=== PATIENT | male | born 1965 | race African-American/Black ===

== ENCOUNTER 2022-05-24 12:01 | Inpatient (IN) | payer OTHER ==
[2022-05-24 12:57] VITALS: BMI 36.2
[2022-05-24] MEDS ORDERED: IBUPROFEN 600 MG TABLET (FP) PO PRN (15:08)
[2022-05-24] MEDS ORDERED: DICYCLOMINE HCL 10 MG CAPSULE PO PRN (15:08)
[2022-05-24] MEDS ORDERED: NICOTINE 10 MG CARTRIDGE (INHALER) IH PRN (15:08)
[2022-05-24] MEDS ORDERED: MAG HYDROX/AL HYDROX/SIMETH 30 ML UNIT-DOSE CUP PO PRN (15:08)
[2022-05-24] MEDS ORDERED: IBUPROFEN 400 MG TABLET (FP) PO PRN (15:08)
[2022-05-24] MEDS ORDERED: BISMUTH SUBSALICYLATE 262 MG/15 ML BTL PO PRN (15:08)
[2022-05-24] MEDS ORDERED: LOPERAMIDE HCL 2 MG CAPSULE PO PRN (15:08)
[2022-05-24] MEDS ORDERED: POLYETHYLENE GLYCOL (HEALTHYLAX) 3350 17 GM PACKET PO PRN (15:08)
[2022-05-24] MEDS ORDERED: ACETAMINOPHEN 325 MG TABLET (FP) PO PRN (15:08)
[2022-05-24] MEDS ORDERED: NICOTINE POLACRILEX 4 MG GUM BUC PRN (15:08)
[2022-05-24] MEDS ORDERED: MAGNESIUM HYDROX 2400MG/30ML ORAL SUSPENSION 30 ML CUP PO PRN (15:08)
[2022-05-24] MEDS ORDERED: ONDANSETRON *ODT* 4 MG TABLET SL PRN (15:08)
[2022-05-24] MEDS ORDERED: hydrOXYzine PAMOATE 25 MG CAPSULE (FP) PO PRN (15:08)
[2022-05-24] MEDS ORDERED: BENZOCAINE/MENTHOL (CHLORASEPTIC ) LOZENGE MM PRN (15:08)
[2022-05-24] MEDS ORDERED: LORazepam 1 MG TABLET PO PRN (15:08)
[2022-05-24] MEDS ORDERED: amLODIPine BESYLATE 5 MG TABLET (FP) ONE (16:42)
[2022-05-24] MEDS: amLODIPine BESYLATE 10 MG TABLET (FP) PO SCH (16:44)
[2022-05-24] MEDS: LORazepam 2 MG TABLET PO SCH ×2 (17:22→23:07)
[2022-05-24] MEDS: NICOTINE 21 MG/24 HOURS TOPICAL PATCH TD SCH (17:23)
[2022-05-24] MEDS ORDERED: MELATONIN 5 MG TABLETS PO SCH (22:00)
[2022-05-24] MEDS: THIAMINE HCL 100 MG TABLET (FP) PO SCH (22:47)
[2022-05-25] MEDS: LORazepam 2 MG TABLET PO SCH ×4 (06:00→22:32)
[2022-05-25] MEDS: PRENATAL VITAMINS W/ FOLIC ACID TABLET (FP) PO SCH (10:30)
[2022-05-25] MEDS: METHOCARBAMOL 500 MG TABLET PO PRN (10:31)
[2022-05-25] MEDS: NICOTINE 21 MG/24 HOURS TOPICAL PATCH TD SCH (10:32)
[2022-05-25] MEDS: amLODIPine BESYLATE 10 MG TABLET (FP) PO SCH (10:32)
[2022-05-25 10:55] LABS: HEMATOCRIT 33.3 % (35.4-49); HEMOGLOBIN 11.4 GM/dL (11.7-16.9); MCH 29.4 pg (25.7-33.7); MCHC 34.2 g/dl (32.0-35.9); MEAN PLT VOLUME 9.7 fl (7.5-11.1); PLATELET COUNT 201 10^3/uL (134-434); RBC 3.87 M/mm3 (4.00-5.60); RDW 16.8 % (11.9-15.9); WHITE BLOOD COUNT 8.6 K/mm3 (4.0-10.0)
[2022-05-25 11:20] LABS: ALBUMIN 2.8 g/dl (3.4-5.0); BLOOD UREA NITROGEN 14.3 mg/dL (7-18)
[2022-05-25 11:23] LABS: BILIRUBIN,TOTAL 0.3 mg/dL (0.2-1); CALCIUM 8.7 mg/dL (8.5-10.1); TOT PROT 6.6 g/dl (6.4-8.2)
[2022-05-25] MEDS: ACETAMINOPHEN 325 MG TABLET (FP) PO PRN (18:32)
[2022-05-25] MEDS: THIAMINE HCL 100 MG TABLET (FP) PO SCH (22:32)
[2022-05-25] MEDS: QUEtiapine FUMARATE 100 MG TABLET (FP) PO SCH (22:32)
[2022-05-26] MEDS: LORazepam 1 MG TABLET PO SCH ×4 (06:21→22:43)
[2022-05-26] MEDS: NICOTINE 21 MG/24 HOURS TOPICAL PATCH TD SCH (10:47)
[2022-05-26] MEDS: amLODIPine BESYLATE 10 MG TABLET (FP) PO SCH (10:47)
[2022-05-26] MEDS: PRENATAL VITAMINS W/ FOLIC ACID TABLET (FP) PO SCH (10:47)
[2022-05-26] MEDS: ACETAMINOPHEN 325 MG TABLET (FP) PO PRN (10:49)
[2022-05-26] MEDS: METHOCARBAMOL 500 MG TABLET PO PRN (10:49)
[2022-05-26] MEDS: THIAMINE HCL 100 MG TABLET (FP) PO SCH (22:43)
[2022-05-26] MEDS: QUEtiapine FUMARATE 100 MG TABLET (FP) PO SCH (22:43)
[2022-05-27] MEDS ORDERED: LORazepam 0.5 MG TABLET PO PRN
[2022-05-27] MEDS: LORazepam 0.5 MG TABLET PO SCH ×2 (06:14→10:40)
[2022-05-27 09:21] VITALS: RESP 18
[2022-05-27] MEDS: PRENATAL VITAMINS W/ FOLIC ACID TABLET (FP) PO SCH (10:39)
[2022-05-27] MEDS: NICOTINE 21 MG/24 HOURS TOPICAL PATCH TD SCH (10:40)
[2022-05-27] MEDS: amLODIPine BESYLATE 10 MG TABLET (FP) PO SCH (10:40)
[2022-05-27] MEDS: METHOCARBAMOL 500 MG TABLET PO PRN (10:40)
[2022-05-27 13:08] VITALS: BP 132/70; PULSE 91; TEMP 98.6
[2022-05-28] MEDS ORDERED: LORazepam 0.5 MG TABLET PO ONE (05:00)
== END 2022-05-27 15:16 | disposition home or self-care (01) | DRG 897 ==
LOC: YASAS 12:01 → Y6N 15:58
PROVIDERS: ADMIT Allergy & Immunology; ATTEND Surgery
PROC: HZ2ZZZZ Detoxification Services for Substance Abuse Treatment (ICD-10-PCS; principal; 2022-05-24)
DX: F10.230 Alcohol dependence with withdrawal, uncomplicated (principal); F14.20 Cocaine dependence, uncomplicated; F19.282 Other psychoactive substance dependence with psychoactive substance-induced sleep disorder; F12.20 Cannabis dependence, uncomplicated; F17.210 Nicotine dependence, cigarettes, uncomplicated; F25.9 Schizoaffective disorder, unspecified; I10 Essential (primary) hypertension; E66.9 Obesity, unspecified; Z68.36 Body mass index [BMI] 36.0-36.9, adult; Z86.73 Personal history of transient ischemic attack (TIA), and cerebral infarction without residual deficits; Z99.89 Dependence on other enabling machines and devices
CPT/HCPCS: 36415; 80053; 85027; 86593; 86780; 93005; 93010; C9803-CS; U0003; U0005

== ENCOUNTER 2022-06-26 09:41 | Inpatient (IN) | payer OTHER ==
[2022-06-26 10:13] VITALS: BMI 31.6
[2022-06-26] MEDS ORDERED: BENZOCAINE/MENTHOL (CHLORASEPTIC ) LOZENGE MM PRN (11:48)
[2022-06-26] MEDS ORDERED: chlordiazePOXIDE HCL 25 MG CAPSULE PO PRN (11:48)
[2022-06-26] MEDS ORDERED: IBUPROFEN 600 MG TABLET (FP) PO PRN (11:48)
[2022-06-26] MEDS ORDERED: LOPERAMIDE HCL 2 MG CAPSULE PO PRN (11:48)
[2022-06-26] MEDS ORDERED: NALOXONE HCL 0.4 MG/ML VIAL IM PRN (11:48)
[2022-06-26] MEDS ORDERED: NALOXONE HCL (KLOXXADO) 8 MG SPRAY NS PRN (11:48)
[2022-06-26] MEDS ORDERED: BISMUTH SUBSALICYLATE 524 MG/30 ML PO PRN (11:48)
[2022-06-26] MEDS ORDERED: IBUPROFEN 400 MG TABLET (FP) PO PRN (11:48)
[2022-06-26] MEDS ORDERED: MAG HYDROX/AL HYDROX/SIMETH 30 ML UNIT-DOSE CUP PO PRN (11:48)
[2022-06-26] MEDS ORDERED: BENZONATATE 200 MG CAPSULE PO PRN (11:48)
[2022-06-26] MEDS ORDERED: DICYCLOMINE HCL 10 MG CAPSULE PO PRN (11:48)
[2022-06-26] MEDS ORDERED: MAGNESIUM HYDROX 2400MG/30ML ORAL SUSPENSION 30 ML CUP PO PRN (11:48)
[2022-06-26] MEDS ORDERED: ONDANSETRON *ODT* 4 MG TABLET SL PRN (11:48)
[2022-06-26] MEDS ORDERED: guaiFENesin 600 MG TABLET.ER (FP) PO PRN (11:48)
[2022-06-26] MEDS ORDERED: POLYETHYLENE GLYCOL (HEALTHYLAX) 3350 17 GM PACKET PO PRN (11:48)
[2022-06-26] MEDS ORDERED: ACETAMINOPHEN 325 MG TABLET (FP) PO PRN (11:48)
[2022-06-26] MEDS: chlordiazePOXIDE HCL 25 MG CAPSULE PO SCH ×2 (17:47→22:23)
[2022-06-26] MEDS: MELATONIN 5 MG TABLETS PO SCH (22:20)
[2022-06-26] MEDS: THIAMINE HCL 100 MG TABLET (FP) PO SCH (22:21)
[2022-06-26] MEDS ORDERED: cloNIDine HCL 0.1 MG TABLET PO ONE (22:30)
[2022-06-27] MEDS: chlordiazePOXIDE HCL 25 MG CAPSULE PO SCH ×4 (05:41→22:11)
[2022-06-27] MEDS: amLODIPine BESYLATE 10 MG TABLET (FP) PO SCH (10:20)
[2022-06-27] MEDS: PRENATAL VITAMINS W/ FOLIC ACID TABLET (FP) PO SCH (10:22)
[2022-06-27 11:42] LABS: HEMATOCRIT 34.1 % (35.4-49); HEMOGLOBIN 11.4 GM/dL (11.7-16.9); MCH 27.9 pg (25.7-33.7); MCHC 33.4 g/dl (32.0-35.9); MEAN CELL VOLUME 83.7 fl (80-96); MEAN PLT VOLUME 9.4 fl (7.5-11.1); PLATELET COUNT 195 10^3/uL (134-434); RBC 4.08 M/mm3 (4.00-5.60); RDW 17.5 % (11.9-15.9); WHITE BLOOD COUNT 7.3 K/mm3 (4.0-10.0)
[2022-06-27 12:00] LABS: CALCIUM 8.5 mg/dL (8.5-10.1)
[2022-06-27 12:01] LABS: ALBUMIN 2.9 g/dl (3.4-5.0); BLOOD UREA NITROGEN 16.8 mg/dL (7-18)
[2022-06-27 12:04] LABS: CREATININE 1.1 mg/dL (0.55-1.3)
[2022-06-27 12:05] LABS: BILIRUBIN,TOTAL 0.6 mg/dL (0.2-1); TOT PROT 6.8 g/dl (6.4-8.2)
[2022-06-27] MEDS: hydrOXYzine PAMOATE 25 MG CAPSULE (FP) PO PRN (21:45)
[2022-06-27] MEDS: MELATONIN 5 MG TABLETS PO SCH (22:08)
[2022-06-27] MEDS: THIAMINE HCL 100 MG TABLET (FP) PO SCH (22:09)
[2022-06-27] MEDS: METHOCARBAMOL 500 MG TABLET PO PRN (22:09)
[2022-06-27] MEDS ORDERED: cloNIDine HCL 0.1 MG TABLET PO ONE (22:22)
[2022-06-28] MEDS: chlordiazePOXIDE HCL 25 MG CAPSULE PO SCH ×4 (05:52→22:36)
[2022-06-28] MEDS: PRENATAL VITAMINS W/ FOLIC ACID TABLET (FP) PO SCH (10:37)
[2022-06-28] MEDS: amLODIPine BESYLATE 10 MG TABLET (FP) PO SCH (10:37)
[2022-06-28] MEDS: MELATONIN 5 MG TABLETS PO SCH (22:36)
[2022-06-28] MEDS: THIAMINE HCL 100 MG TABLET (FP) PO SCH (22:36)
[2022-06-28] MEDS: METHOCARBAMOL 500 MG TABLET PO PRN (22:38)
[2022-06-28] MEDS: hydrOXYzine PAMOATE 25 MG CAPSULE (FP) PO PRN (22:38)
[2022-06-29] MEDS ORDERED: chlordiazePOXIDE HCL 10 MG CAPSULE PO PRN
[2022-06-29] MEDS: chlordiazePOXIDE HCL 10 MG CAPSULE PO SCH ×4 (05:58→22:35)
[2022-06-29] MEDS: amLODIPine BESYLATE 10 MG TABLET (FP) PO SCH (10:50)
[2022-06-29] MEDS: PRENATAL VITAMINS W/ FOLIC ACID TABLET (FP) PO SCH (10:53)
[2022-06-29] MEDS: THIAMINE HCL 100 MG TABLET (FP) PO SCH (22:35)
[2022-06-29] MEDS: MELATONIN 5 MG TABLETS PO SCH (22:35)
[2022-06-29] MEDS: QUEtiapine FUMARATE 100 MG TABLET (FP) PO SCH (22:35)
[2022-06-30] MEDS: chlordiazePOXIDE HCL 10 MG CAPSULE PO SCH ×2 (06:09→17:30)
[2022-06-30] MEDS: amLODIPine BESYLATE 10 MG TABLET (FP) PO SCH (10:42)
[2022-06-30] MEDS: PRENATAL VITAMINS W/ FOLIC ACID TABLET (FP) PO SCH (10:42)
[2022-06-30] MEDS: METHOCARBAMOL 500 MG TABLET PO PRN (22:06)
[2022-06-30] MEDS: hydrOXYzine PAMOATE 25 MG CAPSULE (FP) PO PRN (22:06)
[2022-06-30] MEDS: THIAMINE HCL 100 MG TABLET (FP) PO SCH (22:06)
[2022-06-30] MEDS: MELATONIN 5 MG TABLETS PO SCH (22:06)
[2022-06-30] MEDS: QUEtiapine FUMARATE 100 MG TABLET (FP) PO SCH (22:07)
[2022-07-01] MEDS ORDERED: chlordiazePOXIDE HCL 10 MG CAPSULE PO ONE (05:00)
[2022-07-01] MEDS: amLODIPine BESYLATE 10 MG TABLET (FP) PO SCH (10:46)
[2022-07-01] MEDS: PRENATAL VITAMINS W/ FOLIC ACID TABLET (FP) PO SCH (10:46)
[2022-07-01 13:14] VITALS: BP 140/95; PULSE 101; RESP 19; TEMP 97.7
== END 2022-07-01 14:15 | disposition home or self-care (01) | DRG 897 ==
LOC: YASAS 09:41 → Y3N 11:23
PROVIDERS: ADMIT Allergy & Immunology; ATTEND Surgery
PROC: HZ2ZZZZ Detoxification Services for Substance Abuse Treatment (ICD-10-PCS; principal; 2022-06-26)
DX: F10.230 Alcohol dependence with withdrawal, uncomplicated (principal); F14.20 Cocaine dependence, uncomplicated; F19.282 Other psychoactive substance dependence with psychoactive substance-induced sleep disorder; F12.20 Cannabis dependence, uncomplicated; F25.9 Schizoaffective disorder, unspecified; I10 Essential (primary) hypertension; Z86.73 Personal history of transient ischemic attack (TIA), and cerebral infarction without residual deficits
CPT/HCPCS: 36415; 80053; 82962; 85027; 86593; 86780; 87811; C9803-CS; Q0162; U0003; U0005

== ENCOUNTER 2022-12-03 18:16 | Inpatient (IN) | payer OTHER ==
[2022-12-03 19:49] VITALS: BMI 36.6
[2022-12-03] MEDS ORDERED: ACETAMINOPHEN 325 MG TABLET (FP) PO PRN (20:18)
[2022-12-03] MEDS ORDERED: MAGNESIUM HYDROX 2400MG/30ML ORAL SUSPENSION 30 ML CUP PO PRN (20:18)
[2022-12-03] MEDS ORDERED: BENZOCAINE/MENTHOL (CHLORASEPTIC ) LOZENGE MM PRN (20:18)
[2022-12-03] MEDS ORDERED: IBUPROFEN 400 MG TABLET (FP) PO PRN (20:18)
[2022-12-03] MEDS ORDERED: NALOXONE HCL (KLOXXADO) 8 MG SPRAY NS PRN (20:18)
[2022-12-03] MEDS ORDERED: MAG HYDROX/AL HYDROX/SIMETH 30 ML UNIT-DOSE CUP PO PRN (20:18)
[2022-12-03] MEDS ORDERED: BISMUTH SUBSALICYLATE 524 MG/30 ML PO PRN (20:18)
[2022-12-03] MEDS ORDERED: ONDANSETRON *ODT* 4 MG TABLET SL PRN (20:18)
[2022-12-03] MEDS ORDERED: hydrOXYzine PAMOATE 25 MG CAPSULE (FP) PO PRN (20:18)
[2022-12-03] MEDS ORDERED: IBUPROFEN 600 MG TABLET (FP) PO PRN (20:18)
[2022-12-03] MEDS ORDERED: LOPERAMIDE HCL 2 MG CAPSULE PO PRN (20:18)
[2022-12-03] MEDS ORDERED: NALOXONE HCL 0.4 MG/ML VIAL IM PRN (20:18)
[2022-12-03] MEDS ORDERED: METHOCARBAMOL 500 MG TABLET PO PRN (20:18)
[2022-12-03] MEDS ORDERED: guaiFENesin 600 MG TABLET.ER (FP) PO PRN (20:18)
[2022-12-03] MEDS ORDERED: DICYCLOMINE HCL 10 MG CAPSULE PO PRN (20:18)
[2022-12-03] MEDS ORDERED: POLYETHYLENE GLYCOL (HEALTHYLAX) 3350 17 GM PACKET PO PRN (20:18)
[2022-12-03] MEDS ORDERED: BENZONATATE 200 MG CAPSULE PO PRN (20:18)
[2022-12-03] MEDS ORDERED: cloNIDine HCL 0.1 MG TABLET PO ONE (20:24)
[2022-12-03] MEDS ORDERED: cloNIDine HCL 0.1 MG TABLET ONE (20:28)
[2022-12-03] MEDS: MELATONIN 5 MG TABLETS PO SCH (22:27)
[2022-12-03] MEDS: THIAMINE HCL 100 MG TABLET (FP) PO SCH (22:27)
[2022-12-04] MEDS: amLODIPine BESYLATE 10 MG TABLET (FP) PO SCH (10:37)
[2022-12-04] MEDS: PRENATAL VITAMINS W/ FOLIC ACID TABLET (FP) PO SCH (10:37)
[2022-12-04] MEDS ORDERED: LORazepam 1 MG TABLET PO PRN (11:15)
[2022-12-04 11:20] LABS: HEMATOCRIT 35.4 % (35.4-49); HEMOGLOBIN 11.6 GM/dL (11.7-16.9); MCH 27.2 pg (25.7-33.7); MCHC 32.8 g/dl (32.0-35.9); MEAN CELL VOLUME 82.9 fl (80-96); MEAN PLT VOLUME 9.7 fl (7.5-11.1); PLATELET COUNT 196 10^3/uL (134-434); RBC 4.27 M/mm3 (4.00-5.60); RDW 17.9 % (11.9-15.9); WHITE BLOOD COUNT 8.1 K/mm3 (4.0-10.0)
[2022-12-04 11:21] LABS: POTASSIUM 4.1 mmol/L (3.5-5.1)
[2022-12-04 11:24] LABS: CALCIUM 8.1 mg/dL (8.5-10.1)
[2022-12-04 11:25] LABS: ALBUMIN 2.8 g/dl (3.4-5.0); BLOOD UREA NITROGEN 12.5 mg/dL (7-18)
[2022-12-04 11:28] LABS: CREATININE 1.1 mg/dL (0.55-1.3)
[2022-12-04 11:30] LABS: BILIRUBIN,TOTAL 0.3 mg/dL (0.2-1); TOT PROT 6.5 g/dl (6.4-8.2)
[2022-12-04] MEDS: LORazepam 2 MG TABLET PO SCH ×2 (17:09→22:15)
[2022-12-04] MEDS: MELATONIN 5 MG TABLETS PO SCH (22:15)
[2022-12-04] MEDS: THIAMINE HCL 100 MG TABLET (FP) PO SCH (22:15)
[2022-12-05] MEDS: LORazepam 1 MG TABLET PO SCH ×4 (06:01→22:31)
[2022-12-05] MEDS: amLODIPine BESYLATE 10 MG TABLET (FP) PO SCH (10:36)
[2022-12-05] MEDS: PRENATAL VITAMINS W/ FOLIC ACID TABLET (FP) PO SCH (10:40)
[2022-12-05 17:07] VITALS: RESP 18
[2022-12-05] MEDS: MELATONIN 5 MG TABLETS PO SCH (22:31)
[2022-12-05] MEDS: THIAMINE HCL 100 MG TABLET (FP) PO SCH (22:31)
[2022-12-06] MEDS: LORazepam 0.5 MG TABLET PO SCH ×2 (05:54→10:34)
[2022-12-06] MEDS ORDERED: LISINOPRIL 20 MG TABLET PO ONE (10:00)
[2022-12-06] MEDS: amLODIPine BESYLATE 10 MG TABLET (FP) PO SCH (10:33)
[2022-12-06] MEDS: PRENATAL VITAMINS W/ FOLIC ACID TABLET (FP) PO SCH (10:35)
[2022-12-06 12:38] VITALS: BP 130/69; PULSE 82; TEMP 98.7
[2022-12-07] MEDS ORDERED: LORazepam 0.5 MG TABLET PO ONE (05:00)
== END 2022-12-06 14:50 | disposition home or self-care (01) | DRG 897 ==
LOC: YASAS 18:16 → Y6N 20:43
PROVIDERS: ADMIT Allergy & Immunology; ATTEND Surgery
PROC: HZ2ZZZZ Detoxification Services for Substance Abuse Treatment (ICD-10-PCS; principal; 2022-12-03)
DX: F10.230 Alcohol dependence with withdrawal, uncomplicated (principal); F14.20 Cocaine dependence, uncomplicated; I69.854 Hemiplegia and hemiparesis following other cerebrovascular disease affecting left non-dominant side; F12.20 Cannabis dependence, uncomplicated; F25.9 Schizoaffective disorder, unspecified; I10 Essential (primary) hypertension; E66.9 Obesity, unspecified; Z68.36 Body mass index [BMI] 36.0-36.9, adult; Z86.19 Personal history of other infectious and parasitic diseases; Z99.89 Dependence on other enabling machines and devices
CPT/HCPCS: 36415; 80053; 85027; 86593; 86780; 87635; 87811

== ENCOUNTER 2023-03-20 13:02 | Inpatient (IN) | payer OTHER ==
[2023-03-20 13:51] VITALS: BMI 36.6
[2023-03-20] MEDS ORDERED: hydrOXYzine PAMOATE 25 MG CAPSULE (FP) PO PRN (17:05)
[2023-03-20] MEDS ORDERED: IBUPROFEN 400 MG TABLET (FP) PO PRN (17:05)
[2023-03-20] MEDS ORDERED: POLYETHYLENE GLYCOL (HEALTHYLAX) 3350 17 GM PACKET PO PRN (17:05)
[2023-03-20] MEDS ORDERED: BENZONATATE 200 MG CAPSULE PO PRN (17:05)
[2023-03-20] MEDS ORDERED: LOPERAMIDE HCL 2 MG CAPSULE PO PRN (17:05)
[2023-03-20] MEDS ORDERED: guaiFENesin 600 MG TABLET.ER (FP) PO PRN (17:05)
[2023-03-20] MEDS ORDERED: ONDANSETRON *ODT* 4 MG TABLET SL PRN (17:05)
[2023-03-20] MEDS ORDERED: IBUPROFEN 600 MG TABLET (FP) PO PRN (17:05)
[2023-03-20] MEDS ORDERED: METHOCARBAMOL 500 MG TABLET PO PRN (17:05)
[2023-03-20] MEDS ORDERED: ACETAMINOPHEN 325 MG TABLET (FP) PO PRN (17:05)
[2023-03-20] MEDS ORDERED: DICYCLOMINE HCL 10 MG CAPSULE PO PRN (17:05)
[2023-03-20] MEDS ORDERED: BENZOCAINE/MENTHOL (CHLORASEPTIC ) LOZENGE MM PRN (17:05)
[2023-03-20] MEDS ORDERED: MAG HYDROX/AL HYDROX/SIMETH 30 ML UNIT-DOSE CUP PO PRN (17:05)
[2023-03-20] MEDS ORDERED: BISMUTH SUBSALICYLATE 524 MG/30 ML PO PRN (17:05)
[2023-03-20] MEDS ORDERED: MAGNESIUM HYDROX 2400MG/30ML ORAL SUSPENSION 30 ML CUP PO PRN (17:05)
[2023-03-20] MEDS: THIAMINE HCL 100 MG TABLET (FP) PO SCH (21:38)
[2023-03-20] MEDS: MELATONIN 5 MG TABLETS PO SCH (21:38)
[2023-03-21] MEDS: P-EPHED 60MG/TRIPROLIDI 2.5MG TABLET PO PRN ×3 (00:13→22:37)
[2023-03-21] MEDS: PRENATAL VITAMINS W/ FOLIC ACID TABLET (FP) PO SCH (10:20)
[2023-03-21] MEDS: amLODIPine BESYLATE 10 MG TABLET (FP) PO SCH (11:12)
[2023-03-21 13:07] LABS: HEMATOCRIT 34.4 % (35.4-49); HEMOGLOBIN 11.1 GM/dL (11.7-16.9); MCH 26.7 pg (25.7-33.7); MCHC 32.2 g/dl (32.0-35.9); MEAN CELL VOLUME 83.1 fl (80-96); MEAN PLT VOLUME 9.8 fl (7.5-11.1); PLATELET COUNT 223 10^3/uL (134-434); RBC 4.14 M/mm3 (4.00-5.60); RDW 19.1 % (11.9-15.9); WHITE BLOOD COUNT 11.9 K/mm3 (4.0-10.0)
[2023-03-21 13:17] LABS: CHLORIDE 105 mmol/L (98-107); POTASSIUM 3.7 mmol/L (3.5-5.1); SODIUM 138 mmol/L (136-145)
[2023-03-21 13:27] LABS: ANION GAP 6 mmol/L (4-13); BLOOD UREA NITROGEN 12.4 mg/dL (7-18); CALCIUM 8.5 mg/dL (8.5-10.1); CO2 28 mmol/L (21-32); GLUCOSE,RANDOM 222 mg/dL (74-106)
[2023-03-21 13:28] LABS: ALBUMIN 2.7 g/dl (3.4-5.0)
[2023-03-21 13:30] LABS: SGPT/ALT 23 U/L (13-61)
[2023-03-21 13:31] LABS: SGOT/AST 11 U/L (15-37)
[2023-03-21 13:32] LABS: BILIRUBIN,TOTAL 0.4 mg/dL (0.2-1); TOT PROT 6.6 g/dl (6.4-8.2)
[2023-03-21 13:33] LABS: ALK PHOS 93 U/L (45-117)
[2023-03-21 13:36] LABS: CREATININE 1.1 mg/dL (0.55-1.3)
[2023-03-21] MEDS: LISINOPRIL 20 MG TABLET PO SCH (20:30)
[2023-03-21 22:03] LABS: HIV INTERPRETATION NEGATIVE (NEGATIVE)
[2023-03-21] MEDS: THIAMINE HCL 100 MG TABLET (FP) PO SCH (22:37)
[2023-03-21] MEDS: MELATONIN 5 MG TABLETS PO SCH (22:37)
[2023-03-22] MEDS: PRENATAL VITAMINS W/ FOLIC ACID TABLET (FP) PO SCH (10:25)
[2023-03-22] MEDS: amLODIPine BESYLATE 10 MG TABLET (FP) PO SCH (10:25)
[2023-03-22] MEDS: LISINOPRIL 20 MG TABLET PO SCH (10:25)
[2023-03-22] MEDS: P-EPHED 60MG/TRIPROLIDI 2.5MG TABLET PO PRN (10:27)
[2023-03-22] MEDS: THIAMINE HCL 100 MG TABLET (FP) PO SCH (22:49)
[2023-03-22] MEDS: MELATONIN 5 MG TABLETS PO SCH (22:49)
[2023-03-23] MEDS ORDERED: ALBUTEROL SO4 HFA INHALER IH ONE (09:14)
[2023-03-23] MEDS ORDERED: ALBUTEROL SO4 2.5/IPRATROPIUM 0.5 INH SOL 3 ML VIAL.NEB. NEB ONE (09:23)
[2023-03-23] MEDS ORDERED: ALBUTEROL SO4 0.083% IH SOL 2.5 MG/3 ML VIAL.NEB. NEB ONE ×2 (09:26→15:04)
[2023-03-23] MEDS: PRENATAL VITAMINS W/ FOLIC ACID TABLET (FP) PO SCH (09:35)
[2023-03-23] MEDS: amLODIPine BESYLATE 10 MG TABLET (FP) PO SCH (09:35)
[2023-03-23] MEDS: P-EPHED 60MG/TRIPROLIDI 2.5MG TABLET PO PRN ×2 (09:35→22:01)
[2023-03-23] MEDS: LISINOPRIL 20 MG TABLET PO SCH (09:35)
[2023-03-23] MEDS: ALBUTEROL SO4 HFA INHALER IH PRN ×2 (09:40→15:00)
[2023-03-23] MEDS: predniSONE 20 MG TABLET (UD) PO SCH (10:52)
[2023-03-23] MEDS ORDERED: ALBUTEROL SO4 2.5/IPRATROPIUM 0.5 INH SOL 3 ML VIAL.NEB. NEB PRN (15:17)
[2023-03-23] MEDS ORDERED: diazePAM 5 MG TABLET PO ONE (15:18)
[2023-03-23] MEDS ORDERED: QUEtiapine FUMARATE 100 MG TABLET (FP) PO SCH (22:00)
[2023-03-23] MEDS: MELATONIN 5 MG TABLETS PO SCH (22:02)
[2023-03-23] MEDS: THIAMINE HCL 100 MG TABLET (FP) PO SCH (22:02)
[2023-03-24 08:53] VITALS: BP 131/74; PULSE 93; RESP 16; TEMP 96.9
[2023-03-24] MEDS: predniSONE 20 MG TABLET (UD) PO SCH (09:46)
[2023-03-24] MEDS: amLODIPine BESYLATE 10 MG TABLET (FP) PO SCH (09:47)
[2023-03-24] MEDS: LISINOPRIL 20 MG TABLET PO SCH (09:47)
[2023-03-24] MEDS: PRENATAL VITAMINS W/ FOLIC ACID TABLET (FP) PO SCH (09:47)
== END 2023-03-24 10:56 | disposition home or self-care (01) | DRG 897 ==
LOC: YASAS 13:02 → Y3N 17:22
PROVIDERS: ADMIT Allergy & Immunology; ATTEND Surgery
PROC: HZ2ZZZZ Detoxification Services for Substance Abuse Treatment (ICD-10-PCS; principal; 2023-03-20)
DX: F10.230 Alcohol dependence with withdrawal, uncomplicated (principal); I69.854 Hemiplegia and hemiparesis following other cerebrovascular disease affecting left non-dominant side; F14.10 Cocaine abuse, uncomplicated; F12.20 Cannabis dependence, uncomplicated; F17.210 Nicotine dependence, cigarettes, uncomplicated; F25.9 Schizoaffective disorder, unspecified; I10 Essential (primary) hypertension; J06.9 Acute upper respiratory infection, unspecified; J45.909 Unspecified asthma, uncomplicated; R73.9 Hyperglycemia, unspecified; Z20.828 Contact with and (suspected) exposure to other viral communicable diseases; Z99.89 Dependence on other enabling machines and devices
CPT/HCPCS: 0241U-QW; 36415; 80053; 80307; 85027; 86593; 86780; 87389; 87635; 87811; 94640

== ENCOUNTER 2023-06-24 10:15 | Inpatient (IN) | payer OTHER ==
[2023-06-24 10:39] VITALS: BMI 34.9
[2023-06-24] MEDS ORDERED: NALOXONE HCL 0.4 MG/ML VIAL IM PRN (12:54)
[2023-06-24] MEDS ORDERED: ONDANSETRON *ODT* 4 MG TABLET SL PRN (12:54)
[2023-06-24] MEDS ORDERED: guaiFENesin 600 MG TABLET.ER (FP) PO PRN (12:54)
[2023-06-24] MEDS ORDERED: POLYETHYLENE GLYCOL (HEALTHYLAX) 3350 17 GM PACKET PO PRN (12:54)
[2023-06-24] MEDS ORDERED: LORazepam 1 MG TABLET PO PRN (12:54)
[2023-06-24] MEDS ORDERED: ACETAMINOPHEN 325 MG TABLET (FP) PO PRN (12:54)
[2023-06-24] MEDS ORDERED: BISMUTH SUBSALICYLATE 524 MG/30 ML PO PRN (12:54)
[2023-06-24] MEDS ORDERED: LOPERAMIDE HCL 2 MG CAPSULE PO PRN (12:54)
[2023-06-24] MEDS ORDERED: MAGNESIUM HYDROX 2400MG/30ML ORAL SUSPENSION 30 ML CUP PO PRN (12:54)
[2023-06-24] MEDS ORDERED: BENZONATATE 200 MG CAPSULE PO PRN (12:54)
[2023-06-24] MEDS ORDERED: DICYCLOMINE HCL 10 MG CAPSULE PO PRN (12:54)
[2023-06-24] MEDS ORDERED: BENZOCAINE/MENTHOL (CHLORASEPTIC ) LOZENGE MM PRN (12:54)
[2023-06-24] MEDS ORDERED: NALOXONE HCL (KLOXXADO) 8 MG SPRAY NS PRN (12:54)
[2023-06-24] MEDS: ASPIRIN 81 MG CHEWABLE TABLETS PO SCH (15:23)
[2023-06-24] MEDS: ISOSORBIDE MONONITRATE 30 MG TAB.SR.24H (FP) PO SCH (15:24)
[2023-06-24] MEDS: NIFEdipine E.R. 30 MG TABLET PO SCH (15:25)
[2023-06-24] MEDS: LORazepam 2 MG TABLET PO SCH (17:50)
[2023-06-24] MEDS: METHOCARBAMOL 500 MG TABLET PO PRN (18:50)
[2023-06-24] MEDS: ROSUVASTATIN CA 20 MG TABLET PO SCH (22:24)
[2023-06-24] MEDS: MELATONIN 5 MG TABLETS PO SCH (22:24)
[2023-06-24] MEDS: THIAMINE HCL 100 MG TABLET (FP) PO SCH (22:24)
[2023-06-25] MEDS ORDERED: NIFEdipine E.R. 30 MG TABLET PO SCH (10:00)
[2023-06-25] MEDS: PRENATAL VITAMINS W/ FOLIC ACID TABLET (FP) PO SCH (10:48)
[2023-06-25 10:54] LABS: HEMATOCRIT 33.3 % (35.4-49); HEMOGLOBIN 11.1 GM/dL (11.7-16.9); MCH 28.3 pg (25.7-33.7); MCHC 33.4 g/dl (32.0-35.9); MEAN CELL VOLUME 84.6 fl (80-96); PLATELET COUNT 191 10^3/uL (134-434); RBC 3.94 M/mm3 (4.00-5.60); RDW 18.6 % (11.9-15.9); WHITE BLOOD COUNT 7.4 K/mm3 (4.0-10.0)
[2023-06-25 11:00] LABS: POTASSIUM 3.6 mmol/L (3.5-5.1)
[2023-06-25 11:05] LABS: BLOOD UREA NITROGEN 15.1 mg/dL (7-18)
[2023-06-25 11:06] LABS: CALCIUM 8.5 mg/dL (8.5-10.1)
[2023-06-25 11:07] LABS: ALBUMIN 2.7 g/dl (3.4-5.0)
[2023-06-25 11:08] LABS: CREATININE 1.1 mg/dL (0.55-1.3)
[2023-06-25 11:10] LABS: BILIRUBIN,TOTAL 0.3 mg/dL (0.2-1); TOT PROT 6.4 g/dl (6.4-8.2)
[2023-06-25] MEDS: LACTULOSE 20 GM/30 ML UDC (FOR ORAL USE ONLY) PO SCH (13:56)
[2023-06-25] MEDS: MAG HYDROX/AL HYDROX/SIMETH 30 ML UNIT-DOSE CUP PO PRN (21:45)
[2023-06-25] MEDS: QUEtiapine FUMARATE 50 MG TABLET PO SCH (22:23)
[2023-06-26] MEDS: LORazepam 1 MG TABLET PO SCH (05:36)
[2023-06-27] MEDS ORDERED: LORazepam 0.5 MG TABLET PO PRN
[2023-06-27] MEDS: LORazepam 0.5 MG TABLET PO SCH (05:14)
[2023-06-28] MEDS: LORazepam 0.5 MG TABLET PO ONE ×2 (06:27)
[2023-06-28 11:08] VITALS: BP 137/70; PULSE 91; RESP 18; TEMP 98
== END 2023-06-28 09:40 | disposition other institution (70) | DRG 897 ==
LOC: YASAS 10:15 → Y6N 12:35
PROVIDERS: ADMIT Allergy & Immunology; ATTEND Surgery
PROC: HZ2ZZZZ Detoxification Services for Substance Abuse Treatment (ICD-10-PCS; principal; 2023-06-24)
DX: F10.230 Alcohol dependence with withdrawal, uncomplicated (principal); F14.20 Cocaine dependence, uncomplicated; F19.282 Other psychoactive substance dependence with psychoactive substance-induced sleep disorder; I69.854 Hemiplegia and hemiparesis following other cerebrovascular disease affecting left non-dominant side; F12.20 Cannabis dependence, uncomplicated; F25.9 Schizoaffective disorder, unspecified; I10 Essential (primary) hypertension; E78.5 Hyperlipidemia, unspecified; R79.89 Other specified abnormal findings of blood chemistry; Z87.891 Personal history of nicotine dependence; Z86.19 Personal history of other infectious and parasitic diseases; Z99.89 Dependence on other enabling machines and devices
CPT/HCPCS: 36415; 80053; 82140; 83036; 85027; 86593; 86780; 93005; 93010